=== PATIENT | female | born 1980 | race Caucasian/White ===

== ENCOUNTER → 2018-07-08 | Outpatient (CLI) | payer OTHER | END | disposition home or self-care (01) | LOC: CFH 10:29 | PROVIDERS: ATTEND Physician Assistant | DX: M47.27 Other spondylosis with radiculopathy, lumbosacral region (principal) | CPT/HCPCS: 72148 ==

== ENCOUNTER → 2018-09-17 | Outpatient (CLI) | payer OTHER ==
[2018-09-17 09:05] LABS: ALANINE AMINOTRANSFERASE 26 U/L (12-78); ALBUMIN 3.8 g/dL (3.4-5.0); ANION GAP 6 mmol/L (5-15); CALCIUM 9.1 mg/dL (8.5-10.1); CHLORIDE 107 mmol/L (98-107); CHOLESTEROL, TOTAL 131 mg/dL (140-239); CREATININE 0.56 mg/dL (0.55-1.02)
[2018-09-17 09:07] LABS: ALKALINE PHOSPHATASE 96 U/L (45-117); BILIRUBIN,TOTAL 0.3 mg/dL (0.2-1.0); CHOL/HDL RATIO 4.5; HDL CHOL % 22 % (28-40); HDL CHOLESTEROL (DIRECT) 29 mg/dL (40-60); LDL CHOLESTEROL,CALCULATED 55 mg/dL (54-169); LDL/HDL RATIO 1.9 (0.5-3.0); TOTAL PROTEIN 7.8 g/dL (6.4-8.2); TRIGLYCERIDES 234 mg/dL (50-200); VLDL CHOLESTEROL 47 mg/dL (0-25)
[2018-09-17 13:31] LABS: HEMOGLOBIN A1C 7.1 % (4.2-6.3)
== END | disposition home or self-care (01) ==
LOC: LAB 08:31
PROVIDERS: ATTEND Physician Assistant
DX: E78.5 Hyperlipidemia, unspecified (principal); E11.9 Type 2 diabetes mellitus without complications
CPT/HCPCS: 36415; 80053; 80061; 83036

== ENCOUNTER 2020-12-20 05:26 | Day surgery (SDC) | payer OTHER ==
[2020-12-17 09:14] LABS: MICROSCOPIC NOT IND
[2020-12-17 09:22] LABS: ALANINE AMINOTRANSFERASE 19 U/L (12-78); ALBUMIN 3.9 g/dL (3.4-5.0); ANION GAP 8 mmol/L (5-15); CALCIUM 9.5 mg/dL (8.5-10.1); CHLORIDE 105 mmol/L (98-107); CREATININE 0.64 mg/dL (0.55-1.02); INTERNATIONAL NORMALIZED RATIO 0.96 (0.93-1.1); PROTHROMBIN TIME 10.3 Seconds (9.6-11.5)
[2020-12-17 09:24] LABS: ALKALINE PHOSPHATASE 80 U/L (45-117); BILIRUBIN,TOTAL 0.4 mg/dL (0.2-1.0); TOTAL PROTEIN 8.7 g/dL (6.4-8.2)
[2020-12-18 09:37] LABS: BASOPHILS % (AUTO) 1 % (0-1); EOSINOPHILS % (AUTO) 1 % (1-7); LYMPHOCYTES % (AUTO) 38 % (22-44); MEAN CORPUSCULAR HEMOGLOBIN 30.1 pg (27.0-34.8); MEAN CORPUSCULAR HGB CONC 34.5 g/dL (32.4-35.8); MEAN PLATELET VOLUME 8.9 fL (7.4-10.4); MONOCYTES % (AUTO) 5 % (2-9); NEUTROPHILS % (AUTO) 56 % (42-75); PLATELET COUNT 326 x10^3/uL (130-400); RED BLOOD COUNT 4.97 x10^6/uL (3.82-5.3); RED CELL DISTRIBUTION WIDTH 12.4 % (9.6-15.2)
[2020-12-19 10:20] LABS: BASOPHILS % (AUTO) 0 % (0-1); EOSINOPHILS % (AUTO) 1 % (1-7); LYMPHOCYTES % (AUTO) 40 % (22-44); MEAN CORPUSCULAR HEMOGLOBIN 29.9 pg (27.0-34.8); MEAN CORPUSCULAR HGB CONC 34.1 g/dL (32.4-35.8); MEAN PLATELET VOLUME 9.1 fL (7.4-10.4); MONOCYTES % (AUTO) 6 % (2-9); NEUTROPHILS % (AUTO) 53 % (42-75); PLATELET COUNT 324 x10^3/uL (130-400); RED BLOOD COUNT 4.94 x10^6/uL (3.82-5.3); RED CELL DISTRIBUTION WIDTH 12.4 % (9.6-15.2)
[~2020-12-20] VITALS: Ht 149.9 cm; Wt 66.4 kg
[~2020-12-20 05:26] MED LIST: ATOR20TA37 PO; DOXE25CA PO; GEMF-31 PO; GLIP10TA13 PO; HYDR-2214 PO; INSU100V8 SQ; LINA5TAB PO; LISI5TAB7 PO; LORA10TA75 PO; METH-639 PO; PREG100C PO
[2020-12-20] MEDS ORDERED: EPINEPHRINE 1 MG/ML, 1ML ONE (06:16)
[2020-12-20] MEDS ORDERED: VANCOMYCIN 1,000 MG ONE (06:16)
[2020-12-20] MEDS ORDERED: BUPIVACAINE/PF 0.5% ONE (06:16)
[2020-12-20] MEDS ORDERED: GENTAMICIN 80 MG/2 ML ONE (06:16)
[2020-12-20 06:17] VITALS: BP 96/68
[2020-12-20] MEDS ORDERED: BUPIVACAINE 0.25% ONE (06:17)
[2020-12-20 06:23] LABS: HCG UR SG 1.015 (1.003-1.030)
[2020-12-20] MEDS ORDERED: CHLORHEXIDINE 15 ML UDC PO ONE (06:30)
[2020-12-20] MEDS ORDERED: LACTATED RINGERS 1,000 ML IV SCH (06:30)
[2020-12-20] MEDS ORDERED: PROPOFOL 100 ML ONE (06:48)
[2020-12-20] MEDS ORDERED: FENTANYL PF 250 MCG/5ML ONE (06:49)
[2020-12-20] MEDS ORDERED: MIDAZOLAM 1 MG/ML, 2ML ONE (06:49)
[2020-12-20] MEDS ORDERED: SUCCINYLCHOLINE 20 MG/ML, 10ML ONE (06:50)
[2020-12-20] MEDS ORDERED: PROPOFOL 10 MG/ML, 20ML ONE ×2 (06:52)
[2020-12-20] MEDS ORDERED: DEXAMETHASONE 4 MG/ML, 1ML ONE ×2 (06:55)
[2020-12-20] MEDS ORDERED: CEFAZOLIN 1,000 MG ONE ×2 (06:56)
[2020-12-20] MEDS ORDERED: METOPROLOL 1 MG/ML, 5ML ONE (07:25)
[2020-12-20] MEDS ORDERED: OXYcodone 5 MG/5 ML ORAL.SOL UDC PO PRN (07:30)
[2020-12-20] MEDS ORDERED: ONDANSETRON 2MG/ML, 2ML IVPush PRN ×2 (07:30→08:30)
[2020-12-20] MEDS ORDERED: METHOCARBAMOL 1,000 MG in DEXTROSE 5% 100 ML IV PRN (07:30)
[2020-12-20] MEDS ORDERED: FENTANYL PF 100 MCG/2ML IV PRN (07:30)
[2020-12-20] MEDS ORDERED: ACETAMINOPHEN 325 MG TABLET PO PRN (07:30)
[2020-12-20] MEDS ORDERED: HYDROmorphone 1 MG/ML, 1ML INJ IVPush PRN (07:30)
[2020-12-20] MEDS ORDERED: MEPERIDINE/PF 25MG/0.5ML IVPush PRN (07:30)
[2020-12-20] MEDS ORDERED: DIAZEPAM 5 MG/ML, 2ML IVPush PRN (07:30)
[2020-12-20] MEDS ORDERED: PROMETHAZINE 25 MG/ML, 1ML IVPush PRN (07:30)
[2020-12-20] MEDS ORDERED: BUPIVACAINE/PF-EPI 0.5% 1:200K INFIL ONE (07:42)
[2020-12-20] MEDS ORDERED: VANCOMYCIN 1,000 MG IM ONE ×2 (07:42→08:15)
[2020-12-20] MEDS ORDERED: FENTANYL PF 100 MCG/2ML ONE (07:57)
[2020-12-20] MEDS ORDERED: EPHEDRINE 50 MG/ML, 1ML ONE (08:02)
[2020-12-20] MEDS ORDERED: BUPIVACAINE/PF 0.25% EPIDPUSH ONE (08:03)
[2020-12-20] MEDS ORDERED: FENTANYL PF 100 MCG/2ML EPIDPUSH ONE (08:04)
[2020-12-20] MEDS ORDERED: BUPIVACAINE LIPOSOME/PF 20ML INFIL ONE (08:04)
[2020-12-20] MEDS ORDERED: ONDANSETRON 2MG/ML, 2ML ONE (08:06)
[2020-12-20] MEDS ORDERED: BUPIVACAINE LIPOSOME/PF 10ML INFIL ONE (08:15)
[2020-12-20] MEDS ORDERED: HYDROmorphone/PF 4 MG/ML, 1ML IM PRN (08:30)
[2020-12-20] MEDS ORDERED: METHOCARBAMOL 750 MG TABLET PO PRN (08:30)
[2020-12-20] MEDS ORDERED: INSULIN REGULAR 100 UNITS/ML, 3ML VIAL SQ-INSULIN PRN (08:30)
[2020-12-20] MEDS ORDERED: HYDROcodone/APAP 10/325 MG TABLET PO PRN (08:30)
[2020-12-20] MEDS ORDERED: PROMETHAZINE 25 MG/ML, 1ML IM PRN (08:30)
[2020-12-20] MEDS ORDERED: NS + 20MEQ KCL 1,000 ML IV SCH (08:30)
[2020-12-20] MEDS ORDERED: DIPHENHYDRAMINE 50 MG/ML, 1ML IVPush PRN (08:30)
[2020-12-20] MEDS ORDERED: HYDROcodone/APAP 5/325 TABLET PO PRN (08:30)
[2020-12-20] MEDS ORDERED: PHARMACY MAY ADJ FOR RENAL FX MC PRN (08:30)
[2020-12-20] MEDS ORDERED: CEFAZOLIN PMX 1GM/50ML 50 ML IVPB SCH (08:30)
[2020-12-20] MEDS ORDERED: HYDR1TAB53 PO (08:42)
[2020-12-20] MEDS ORDERED: METH-640 PO (08:42)
[2020-12-20] MEDS ORDERED: ACETAMINOPHEN 650 MG/20.3 ML UDC ONE (08:51)
[2020-12-20] MEDS ORDERED: GEMFIBROZIL 600 MG TABLET PO SCH (09:00)
[2020-12-20] MEDS ORDERED: LINAGLIPTIN 5 MG TAB PO SCH (09:00)
[2020-12-20] MEDS ORDERED: PREGABALIN 100 MG CAPSULE PO SCH (09:00)
[2020-12-20] MEDS ORDERED: LISINOPRIL 5 MG TABLET PO SCH (09:00)
[2020-12-20] MEDS ORDERED: LORATADINE 10 MG TABLET PO SCH (09:00)
[2020-12-20] MEDS ORDERED: ATORVASTATIN 20 MG TABLET PO SCH (21:00)
[2020-12-20] MEDS ORDERED: DOXEPIN 25 MG CAPSULE PO SCH (21:00)
[2020-12-21] MEDS ORDERED: INSULIN GLARGINE 100 UNITS/ML, PEN SQ-INSULIN SCH (09:00)
== END 2020-12-20 11:00 | disposition home or self-care (01) ==
LOC: OUT 05:26 → UNDOADMOB 08:30 → ORIP 08:30 → OUT 11:00
PROVIDERS: ATTEND Neurological Surgery
DX: M48.062 Spinal stenosis, lumbar region with neurogenic claudication (principal); M54.16 Radiculopathy, lumbar region; E11.9 Type 2 diabetes mellitus without complications; F17.210 Nicotine dependence, cigarettes, uncomplicated; Z20.822 Contact with and (suspected) exposure to COVID-19; Z79.01 Long term (current) use of anticoagulants; Z79.4 Long term (current) use of insulin; Z79.891 Long term (current) use of opiate analgesic; Z79.899 Other long term (current) drug therapy
CPT/HCPCS: 36415; 63047; 71046; 72100; 72110; 80053; 81003; 81025; 82962; 85025; 85610; 85730; 93005; 95938; 95941; C9290; J0171; J0330; J0690; J1100; J1580; J2250; J2405; J2704; J3010; J3370; J7120; U0003; U0005

== ENCOUNTER 2021-02-04 07:39 | Outpatient (CLI) | payer OTHER ==
[~2021-02-04 07:39] MED LIST changes: +HYDR1TAB53 PO; +METH-640 PO
[2021-02-04 07:57] LABS: BASOPHILS % (AUTO) 1 % (0-1); EOSINOPHILS % (AUTO) 2 % (1-7); LYMPHOCYTES % (AUTO) 35 % (22-44); MEAN CORPUSCULAR HEMOGLOBIN 30.3 pg (27.0-34.8); MEAN CORPUSCULAR HGB CONC 34.5 g/dL (32.4-35.8); MEAN PLATELET VOLUME 8.5 fL (7.4-10.4); MONOCYTES % (AUTO) 6 % (2-9); NEUTROPHILS % (AUTO) 57 % (42-75); PLATELET COUNT 333 x10^3/uL (130-400); RED BLOOD COUNT 5.03 x10^6/uL (3.82-5.3); RED CELL DISTRIBUTION WIDTH 12.3 % (9.6-15.2)
[2021-02-04 08:10] LABS: ALANINE AMINOTRANSFERASE 17 U/L (12-78); ALBUMIN 3.7 g/dL (3.4-5.0); ANION GAP 8 mmol/L (5-15); CALCIUM 8.4 mg/dL (8.5-10.1); CHLORIDE 105 mmol/L (98-107); CHOLESTEROL, TOTAL 134 mg/dL (140-239); CREATININE 0.62 mg/dL (0.55-1.02); TRIGLYCERIDES 173 mg/dL (50-200); VLDL CHOLESTEROL 35 mg/dL (0-25)
[2021-02-04 08:12] LABS: ALKALINE PHOSPHATASE 71 U/L (45-117); BILIRUBIN,TOTAL 0.4 mg/dL (0.2-1.0); CHOL/HDL RATIO 3.5; HDL CHOL % 28 % (28-40); HDL CHOLESTEROL (DIRECT) 38 mg/dL (40-60); LDL CHOLESTEROL,CALCULATED 61 mg/dL (54-169); LDL/HDL RATIO 1.6 (0.5-3.0); TOTAL PROTEIN 7.8 g/dL (6.4-8.2)
== END 2021-02-04 23:59 | disposition home or self-care (01) ==
LOC: LAB 07:39
PROVIDERS: ATTEND Nurse Practitioner Family
DX: E11.29 Type 2 diabetes mellitus with other diabetic kidney complication (principal); E11.42 Type 2 diabetes mellitus with diabetic polyneuropathy; R80.9 Proteinuria, unspecified
CPT/HCPCS: 36415; 80053; 80061; 82043; 83036; 85025